=== PATIENT | male | born 1945 | race Caucasian/White ===

== ENCOUNTER 2020-10-26 11:13 | Emergency (ER) | payer MEDICARE, SELFPAY ==
[2020-10-26 11:15] VITALS: BP 159/74; PULSE 82; RESP 16; TEMP 36.8; O2SAT 95; BMI 45.2
--- NOTE | 2020-10-26 12:01 | XR_ITS ---
PROCEDURE: XR HAND RT MIN 3V CLINICAL INDICATION: INJURY Laceration to the 1st and 3rd digits with pain and swelling COMPARISON: No exams were available for comparison FINDINGS: No fracture or dislocation. No lytic or blastic change. There is normal mineralization. 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 A well-circumscribed lucency is present in the proximal and radial aspect of the middle phalanx 4 mm and may represent a small inclusion cyst. Soft tissue swelling is present along the distal aspect of the 3rd finger. No radiopaque foreign body. No soft tissue gas. IMPRESSION: Soft tissue swelling of the 3rd finger distally. Osteoarthritic changes Dictated by: Shawn Sosa MD 10/26/2020 12:33 Shawn Sosa MD in [place] 10/26/2020 12:33
--- NOTE | 2020-10-26 12:19 | HMH.EDUTC ---
[facility] [place] Disposition Clinical Impression: Cellulitis of right hand, Abscess of right thumb Diabetes Qualifiers: Diabetes mellitus type: type 2 Diabetes mellitus terminal operator insulin use: unspecified care home insulin use status Diabetes mellitus complication status: with other specified complication Qualified Code(s): E11.69 - Type 2 diabetes mellitus with other specified complication Disposition: Home, Self-Care Condition on Discharge: Good Instructions: Cellulitis Additional Instructions: Keep the wounds clean and dry. Follow up with your regular doctor. Take the antibiotics as directed and apply the topical antibiotics as directed. Watch the puncture wounds for signs of worsening infection, such as worsening redness, drainage, swelling, etc. GO TO THE ER FOR ANY WORSENING SYMPTOMS We collected a culture of your wounds. This will take 3 days to be completed. It will tell what antibiotics would treat your infection best. Follow up with your primary care doctor for the results of this and to make sure you don't need a different antibiotic. Prescriptions: Sulfamethoxazole/Trimethoprim [Bactrim DS tablet] 1 each PO BID 10 Days #20 tab Transmission Status: Received by [id number] Mupirocin [Bactroban 2% Ointment 22gm tube] 1 applicatio TP TID 7 Days #1 tube Transmission Status: Received by [facility] cephALEXin [cephALEXin 500mg capsule] 500 mg PO Q6H 10 Days #40 cap Transmission Status: Received by [id number] Referrals: Easton Dwyer [Primary Care Provider] - Time of Disposition: 12:49 Medical Decision Making - Medical Records Medical records reviewed: No: I reviewed the patient's medical records. - Zac Inquiry Pt receiving controlled substance: No Vital Signs: 10/26/20 11:15 10/26/20 12:53 Temperature 98.2 F 98.2 F Temperature Source Oral Pulse Rate 82 Pulse Rate [Right] 82 Respiratory Rate 16 16 Blood Pressure 159/74 H Blood Pressure [Right Arm] 159/74 H Blood Pressure Mean [Right Arm] 102 02 Sat by Pulse Oximetry 95 Orders (Tests/Meds): ED MEDICATIONS Discontinued Medications Generic Name Dose Route Start Last Admin Trade Name Freq PRN Reason Stop Dose Admin Ceftriaxone Sodium 1 gm 10/26/20 12:24 10/26/20 12:29 Ceftriaxone 1gm Vial IM 10/26/20 12:25 1 gm ONCE ONE Administration Lidocaine HCl 0 ml 10/26/20 12:24 10/26/20 12:29 Lidocaine 1% 5ml Pf Vial IM 10/26/20 12:25 2.1 ml ONCE ONE Administration ORDERS Category Date Time Status Wound Culture and Gram Stain Stat Micro 10/26/20 12:50 Results - Radiology Data #1 Image(s): Hand Image Reviewed: Yes I reviewed the patient's radiology image, Yes I have reviewed radiologist's interpretation Preliminary Findings: Normal/NAD PROCEDURE: XR HAND RT MIN 3V CLINICAL INDICATION: INJURY Laceration to the 1st and 3rd digits with pain and swelling COMPARISON: No exams were available for comparison FINDINGS: No fracture or dislocation. No lytic or blastic change. There is normal mineralization. 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 A well-circumscribed lucency is present in the proximal and radial aspect of the middle phalanx 4 mm and may represent a small inclusion cyst. Soft tissue swelling is present along the distal aspect of the 3rd finger. No radiopaque foreign body. No soft tissue gas. IMPRESSION: Soft tissue swelling of the 3rd finger distally. Osteoarthritic changes Dictated by: Shawn Sosa MD 10/26/2020 12:33 Shawn Sosa MD in [place] 10/26/2020 12:[address] [facility] [place] HPI - General Stated complaint: r thumb swollen Time Seen by Provider: 10/26/20 12:19 Description of Symptoms (Recalled from Triage Doc. by RN): pt c/o infected thumb and second finger on rt hand
[2020-10-26 12:53] VITALS: BP 159/74; PULSE 82; RESP 16; TEMP 36.8; O2SAT 95
== END 2020-10-26 12:55 | disposition home or self-care (01) ==
PROVIDERS: Emergency Provider Nurse Practitioner Family; PCP Family Medicine
DX: L02.511 Cutaneous abscess of right hand (principal); E11.65 Type 2 diabetes mellitus with hyperglycemia
CPT/HCPCS: G0463; 73130; 87070; 87077; 87186; 87205; 96372; 99202